=== PATIENT | male | born 1975 | race Caucasian/White ===

== ENCOUNTER 2018-06-10 13:18 | Emergency (ER) | payer OTHER, SELFPAY ==
[2018-06-10 13:25] VITALS: BP 148/85; PULSE 85; RESP 16; TEMP 36.8; O2SAT 95
[2018-06-10] MEDS: Ibuprofen 600 MG TAB (13:37)
--- NOTE | 2018-06-10 13:40 | DI.RAD_ITS ---
SYMPTOM/DIAGNOSIS: PAIN AT 2ND AND 3RD MCP JOINTS LEFT HAND: Three views. No priors. No acute fracture or dislocation is seen. There does appear to be soft tissue swelling of the left index finger. There is a tiny 2 mm density in the soft tissues at the radial aspect of the middle phalanx of the left index finger. IMPRESSION: 1. No acute fracture or dislocation. 2. Punctate foreign body seen in the soft tissues of the left index finger.
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
== END 2018-06-10 14:40 | disposition home or self-care (01) ==
LOC: ER 15:27
PROVIDERS: Emergency Provider Student in an Organized Health Care Education/Training Program; PCP Family Medicine
DX: S60.222A Contusion of left hand, initial encounter (principal); V49.9XXA Car occupant (driver) (passenger) injured in unspecified traffic accident, initial encounter
CPT/HCPCS: 99283; 73130; 99282